=== PATIENT | male | born 1970 | race Caucasian/White ===

== ENCOUNTER 2019-10-18 10:11 | Emergency (ER) | payer OTHER ==
--- NOTE | 2019-10-18 10:28 | ER Document Report ---
ED Medical Screen (RME) - General Chief Complaint: Chest Pain Stated Complaint: CHEST PAIN Time Seen by Provider: 10/18/19 10:20 Notes: Patient presents complaining of palpitations for the past 2 days. Patient states he has had occasional dizzy spell. Patient reports chest pain midsternal area yesterday that has since resolved. Patient denies any nausea vomiting or shortness of breath. Patient denies any cough or cold symptoms. Patient reports a history of diabetes only which he manages with diet. I have greeted and performed a rapid initial assessment of this patient. A comprehensive ED assessment and evaluation of the patient, analysis of test results and completion of the medical decision making process will be conducted by additional ED providers. TRAVEL OUTSIDE OF THE [place] IN LAST 30 DAYS: No - Related Data Allergies/Adverse Reactions: amoxicillin [Amoxicillin] Allergy (Verified 09/23/13 00:23) Past Medical History Pulmonary Medical History: Reports: Hx COPD Endocrine Medical History: Reports: Hx Diabetes Mellitus Type 2 - diet controlled Renal/ Medical History: Reports: Hx Kidney Stones - x1 Psychiatric Medical History: Denies: Hx Depression Past Surgical History: Reports: Hx Genitourinary Surgery - vasectomy, Hx Orthopedic Surgery - left knee arthroscopy - Immunizations Hx Diphtheria, Pertussis, Tetanus Vaccination: Yes - 09/22/13 Physical Exam - Respiratory Respiratory status: No respiratory distress Breath sounds: Normal - Cardiovascular Rhythm: Regular Heart sounds: S1 appreciated, S2 appreciated Murmur: No
[2019-10-18 11:01] LABS: ABSOLUTE LYMPHOCYTES (AUTO) 1.2 10^3/uL (0.5-4.7); ABSOLUTE MONOCYTES (AUTO) 0.3 10^3/uL (0.1-1.4); BASOPHILS % (AUTO) 0.5 % (0-2); EOSINOPHILS % (AUTO) 0.4 % (0-6); HEMATOCRIT 47.8 % (37.9-51.0); HEMOGLOBIN 16.6 g/dL (13.5-17.0); MEAN CORPUSCULAR HEMOGLOBIN 29.8 pg (27.0-33.4); MEAN CORPUSCULAR HGB CONC 34.7 g/dL (32.0-36.0); MEAN CORPUSCULAR VOLUME 86 fl (80-97); MONOCYTES % (AUTO) 5.7 % (3-13); PLATELET COUNT 153 10^3/uL (150-450); RED BLOOD COUNT 5.57 10^6/uL (4.35-5.55); RED CELL DISTRIBUTION WIDTH 13.1 % (11.5-14.0); SEGMENTED NEUTROPHILS % (AUTO) 72.4 % (42-78); TOTAL CELLS COUNTED % (AUTO) 100 %; WHITE BLOOD COUNT 5.6 10^3/uL (4.0-10.5)
--- NOTE | 2019-10-18 11:05 | RADIOLOGY REPORT (SQ) ---
EXAM DESCRIPTION: CHEST SINGLE VIEW IMAGES COMPLETED DATE/TIME: 10/18/2019 10:47 am REASON FOR STUDY: palpitations COMPARISON: None. NUMBER OF VIEWS: One view. TECHNIQUE: Single frontal radiographic view of the chest acquired. LIMITATIONS: None. FINDINGS: LUNGS AND PLEURA: No opacities, masses or pneumothorax. No pleural effusion. MEDIASTINUM AND HILAR STRUCTURES: No masses. Contour normal. HEART AND VASCULAR STRUCTURES: Heart normal in size. Normal vasculature. BONES: No acute findings. HARDWARE: None in the chest. OTHER: No other significant finding. IMPRESSION: NO SIGNIFICANT RADIOGRAPHIC FINDING IN THE CHEST. TECHNICAL DOCUMENTATION: JOB ID: [id number] 2010 [employer]- All Rights Reserved Reading location - IP/workstation name: [email or web address]
[2019-10-18 11:21] LABS: ALBUMIN 4.7 g/dL (3.5-5.0); ALKALINE PHOSPHATASE 83 U/L (38-126); ANION GAP 13 (5-19); ASPARTATE AMINO TRANSFERASE 23 U/L (17-59); BILIRUBIN,DIRECT 0.3 mg/dL (0.0-0.4); BILIRUBIN,TOTAL 0.7 mg/dL (0.2-1.3); BLOOD UREA NITROGEN 14 mg/dL (7-20); CALCIUM 10.2 mg/dL (8.4-10.2); CARBON DIOXIDE 25 mmol/L (22-30); CHLORIDE 100 mmol/L (98-107); GLUCOSE 308 mg/dL (75-110); POTASSIUM 4.6 mmol/L (3.6-5.0); TOTAL PROTEIN 7.7 g/dL (6.3-8.2)
--- NOTE | 2019-10-18 14:47 | ER Document Report ---
Entered by CARLA GAYLE SCRIBE 10/18/19 1125 Acting as scribe for:GWENDOLYN SPRINGER MD ED General - General Chief Complaint: Chest Pain Stated Complaint: CHEST PAIN Time Seen by Provider: 10/18/19 10:20 Mode of Arrival: Ambulatory Information source: Patient Notes: This 49 year old male patient presents to the emergency department today with complaints of a heart racing sensation intermittently for the last week. 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 Patient mentions that he has had minimally elevated blood pressures for the last few months which are being followed by his PCP. He is not on any blood pressure medicine. TRAVEL OUTSIDE OF THE [place] IN LAST 30 DAYS: No - Related Data Allergies/Adverse Reactions: amoxicillin [Amoxicillin] Allergy (Verified 10/18/19 10:28) Past Medical History - General Information source: Patient - Social History Smoking Status: Former Smoker Cigarette use (# per day): No Frequency of alcohol use: None Drug Abuse: None Lives with: Family Family History: CAD - Mother at 52, CVA - Sister at 43 Patient has homicidal ideation: No Pulmonary Medical History: Reports: Hx COPD Endocrine Medical History: Reports: Hx Diabetes Mellitus Type 2 - diet controlled Renal/ Medical History: Reports: Hx Kidney Stones - x1 Past Surgical History: Reports: Hx Genitourinary Surgery - vasectomy, Hx Orthopedic Surgery - left knee arthroscopy - Immunizations Hx Diphtheria, Pertussis, Tetanus Vaccination: Yes - 09/22/13 Review of Systems - Review of Systems Constitutional: See HPI, Other - Dehydrated EENT: No symptoms reported Cardiovascular: See HPI, Chest pain, Palpitations, Heart racing Respiratory: No symptoms reported Gastrointestinal: No symptoms reported Genitourinary: No symptoms reported Male Genitourinary: No symptoms reported Musculoskeletal: No symptoms reported Skin: No symptoms reported Hematologic/Lymphatic: No symptoms reported Neurological/Psychological: No symptoms reported -: Yes All other systems reviewed and negative Physical Exam - Vital signs Vitals: Temp Pulse Resp BP Pulse Ox 98.8 F 78 17 155/96 H 98 10/18/19 10:28 10/18/19 10:28 10/18/19 10:28 10/18/19 10:28 10/18/19 10:28 - Notes Notes: Physical Exam: General: Alert, appears well. HEENT: Normocephalic. Atraumatic. PERRL. Extraocular movements intact. Oropharynx clear. Neck: Supple. Non-tender. Respiratory: No respiratory distress. Clear and equal breath sounds bilaterally. Cardiovascular: Regular rate and rhythm. Abdominal: Normal Inspection. Non-tender. No distension. Normal Bowel Sounds. Back: No gross abnormalities. Extremities: Moves all four extremities. Upper extremities: Normal inspection. Normal ROM. Lower extremities: Normal inspection. No edema. Normal ROM. Neurological: Normal cognition. AAOx4. Normal speech. Psychological: Normal affect. Normal Mood. Skin: Warm. Dry. Normal color. Course - Re-evaluation Re-evalutation: 10/18/19 14:38 Patient resting comfortably not having any chest pain not having any shortness of breath still states that he is having occasional extra beat and he notices in his chest. - Vital Signs Vital signs: Temp Pulse Resp BP Pulse Ox 98.8 F 78 17 136/96 H 98 10/18/19 10:28 10/18/19 10:28 10/18/19 11:01 10/18/19 11:01 10/18/19 11:01 10/18/19 14:38 Vital signs stable patient's blood pressure is now 122/83. - Laboratory Result Diagrams: 10/18/19 10:47 10/18/19 10:47 Laboratory results interpreted by me: 10/18/19 10/18/19 10:47 10:47 RBC 5.57 H Glucose 308 H 10/18/19 14:39 Patient's troponin level has been flat across a 0.012. - Diagnostic Test Radiology reviewed: Image reviewed, Reports reviewed Radiology results interpreted by me: 10/18/19 14:39 X-ray shows no acute process. - EKG Interpretation by Me Additional EKG results interpreted by me: 10/18/19 14:39 Twelve-lead EKG shows normal sinus rhythm rate of 84 occasional premature atrial complex. Nonspecific ST-T wave changes. Borderline T wave changes noted no acute interval changes of HI interval or QT interval. No evidence for an acute TN. Discharge - Discharge Clinical Impression: Palpitations, Hyperglycemia, History of dehydration, Atypical chest pain Condition: Stable Disposition: HOME, SELF-CARE Instructions: Chest Pain of Unclear Cause ([facility]) Additional Instructions: Hyperglycemia (High Blood Sugar) You have an abnormally high blood sugar. Not all high blood sugar requires long-term treatment. High blood sugar can be due to medications, , or the stress of illness. (These cases are "borderline diabetes.") If the doctor feels your high blood sugar might resolve with time, you may not require treatment now. You will be scheduled for further evaluation. It's very important that you follow through, to see if the blood sugar returns to normal levels. Uncontrolled high blood sugar leads to early heart disease, strokes, nerve damage, eye damage, and kidney damage. Call the physician if there is faintness, excess sleepiness, or very rapid breathing.Palpitations (Irregular/Rapid Heartrate) Irregular or rapid heartbeat is called "palpitation." To diagnose the caus e of palpitation, we have to "catch it in the act" with an EKG. Sinus Tachycardia: This is a rapid (but NORMAL) rhythm that can be due to fever, pain, anxiety, lack of sleep, over-exertion, or drugs. Cold medications, caffeine, and diet pills are particularly likely to cause tachycardia. Usually, all that's required is rest, reassurance, and avoiding caffeine, alcohol, nicotine, and unnecessary medicines. Paroxysmal Atrial Tachycardia (PAT): This abnormally rapid heartbeat is caused by a "short circuit" in the electrical system of the heart. It is not dangerous, unless other heart disease is present. These attacks of PAT may occur occasionally for years. Medication is available for treatment. Paroxysmal Atrial Fibrillation or Atrial Flutter: This is irregular electrical activity in the upper heart chamber. These abnormal rhythms often occur with valve disease or in hearts damaged by hardening of the arteries. These rhythms usually require further testing, for example a cardiac echo. Premature Beats: Extra beats occur more commonly after caffeine, nicotine, alcohol, cold pills, diet pills. Emotional stress or fatigue also provoke them. Extra beats are only dangerous when heart disease is present. They usually need no treatment. If they're frequent, or if evidence of heart disease develops, medication can be given to suppress them. If we were unable to "catch" the palpitations on EKG, you should try to get an EKG immediately if the symptoms begin again. Contact the physician at once if you develop persistent lightheadedness, shortness of breath, chest pain, or swelling of the ankles. Referrals: VIVIANE STEEN MD [ACTIVE STAFF] - Follow up in 1 week I personally performed the services described in the documentation, reviewed and edited the documentation which was dictated to the scribe in my presence, and it accurately records my words and actions.
[2019-10-18 15:10] VITALS: BP 136/81
--- NOTE | 2019-10-20 02:51 | EKG REPORT ---
SEVERITY:- BORDERLINE ECG - SINUS RHYTHM ATRIAL PREMATURE COMPLEX BORDERLINE T WAVE ABNORMALITIES : Confirmed by: Romain Bermudez MD 20-Oct-2019 02:50:12
== END 2019-10-18 15:11 | disposition home or self-care (01) ==
LOC: ER 10:11
DX: E11.65 Type 2 diabetes mellitus with hyperglycemia (principal); R00.2 Palpitations; R07.89 Other chest pain; E86.0 Dehydration; Z87.891 Personal history of nicotine dependence; Z88.0 Allergy status to penicillin; J44.9 Chronic obstructive pulmonary disease, unspecified
CPT/HCPCS: 36415; 71045; 80053; 83735; 84443; 84484; 85025; 93005; 93010; 99285

== ENCOUNTER 2019-10-21 13:47 | Emergency (ER) | payer OTHER ==
[2019-10-21] MEDS ORDERED: NORMAL SALINE 1000 ML 1,000 ML IV ONE (14:16)
[2019-10-21] MEDS ORDERED: KETOROLAC TROMETHAMINE INJ/PF 30 MG/1 ML SDV IV ONE ×2 (14:16→18:45)
[2019-10-21] MEDS ORDERED: METOCLOPRAMIDE HCL ORAL SOLN 10 MG/10 ML UDCUP PO ONE (14:19)
[2019-10-21] MEDS ORDERED: LIDOCAINE 2% VISCOUS SOLN 15 ML UDCUP PO ONE (14:19)
[2019-10-21] MEDS ORDERED: MAG HYDROX/AL HYDROX/SIMETH SUSP 30 ML UDCUP PO ONE (14:19)
--- NOTE | 2019-10-21 14:20 | ER Document Report ---
ED Medical Screen (RME) - General Chief Complaint: Abdominal Pain Stated Complaint: ABDOMINAL PAIN Time Seen by Provider: 10/21/19 14:08 TRAVEL OUTSIDE OF THE [place] IN LAST 30 DAYS: No - HPI Notes: 10/21/19 14:17 49-year-old male with a history of GERD presents to the emergency room with complaints of right upper quadrant and right lower quadrant abdominal pain with bloating and increased flatus that started Sunday evening. Patient was seen in the emergency room this past Sunday for racing heart, states he has not had any issues with this at this time. Reports his last bowel movement was this mo rning, no melena. Patient has been eating without any issues. Reports he did vomit a few times Sunday night to Sunday but has not vomited since. Has tried Pepto-Bismol without relief. Reports pain is sharp and constant, denies any radiation of pain. Patient states initially it felt like he was gasping his left lower quadrant Sunday and then it moved over to his right upper and right lower quadrant with his pain. Denies any chest pain, shortness of breath, any nausea or vomiting today, no diarrhea. Reports chills denies any fevers. Patient does not take any prescription or egic-puy-crlaueb medication for his GERD, states that he changed his diet to manage his GERD. I have greeted and performed a rapid initial assessment of this patient. A comprehensive ED assessment and evaluation of the patient, analysis of test results and completion of the medical decision making process will be conducted by additional ED providers. PHYSICAL EXAMINATION: GENERAL: Well-appearing, well-nourished and in no acute distress. HEAD: Atraumatic, normocephalic. EYES: Pupils equal round extraocular movements intact, conjunctiva are normal. NECK: Normal range of motion CV: s1, s2 regular LUNGS: No respiratory distress abd: RUQ, RLQ abd pain on palpation, no cva tenderness appreciated Musculoskeletal: Normal range of motion NEUROLOGICAL: Normal speech, normal gait. SKIN: Warm, Dry, normal turgor, no rashes or lesions noted. - Related Data Allergies/Adverse Reactions: amoxicillin [Amoxicillin] Allergy (Verified 10/21/19 14:03) Sulfa (Sulfonamide Antibiotics) Allergy (Verified 10/21/19 14:03) Home Medications: metformen asa 325mg. suboxone Past Medical History - Social History Chew tobacco use (# tins/day): Yes Frequency of alcohol use: Occasional Drug Abuse: None Pulmonary Medical History: Reports: Hx COPD Endocrine Medical History: Reports: Hx Diabetes Mellitus Type 2 - diet controlled Renal/ Medical History: Reports: Hx Kidney Stones - x1 Psychiatric Medical History: Denies: Hx Depression Past Surgical History: Reports: Hx Genitourinary Surgery - vasectomy, Hx Orthopedic Surgery - left knee arthroscopy - Immunizations Hx Diphtheria, Pertussis, Tetanus Vaccination: Yes - 09/22/13 Physical Exam - Vital signs Vitals: Temp Pulse Resp BP Pulse Ox 98.7 F 112 H 20 143/93 H 97 10/21/19 13:52 10/21/19 13:52 10/21/19 13:52 10/21/19 13:52 10/21/19 13:52 Course - Vital Signs Vital signs: Temp Pulse Resp BP Pulse Ox 98.7 F 112 H 20 143/93 H 97 10/21/19 13:52 10/21/19 13:52 10/21/19 13:52 10/21/19 13:52 10/21/19 13:52
[2019-10-21 14:57] LABS: ABSOLUTE BASOPHILS # (AUTO) 0.1 10^3/uL (0.0-0.2); ABSOLUTE EOSINOPHILS # (AUTO) 0.1 10^3/uL (0.0-0.6); ABSOLUTE LYMPHOCYTES (AUTO) 1.5 10^3/uL (0.5-4.7); ABSOLUTE MONOCYTES (AUTO) 0.7 10^3/uL (0.1-1.4); ABSOLUTE NEUT (AUTO) 11.4 10^3/uL (1.7-8.2); BASOPHILS % (AUTO) 0.5 % (0-2); EOSINOPHILS % (AUTO) 0.5 % (0-6); HEMATOCRIT 44.5 % (37.9-51.0); HEMOGLOBIN 15.4 g/dL (13.5-17.0); LYMPHOCYTES % (AUTO) 11.2 % (13-45); MEAN CORPUSCULAR HEMOGLOBIN 29.8 pg (27.0-33.4); MEAN CORPUSCULAR HGB CONC 34.7 g/dL (32.0-36.0); MEAN CORPUSCULAR VOLUME 86 fl (80-97); MONOCYTES % (AUTO) 4.8 % (3-13); PLATELET COUNT 178 10^3/uL (150-450); RED BLOOD COUNT 5.18 10^6/uL (4.35-5.55); TOTAL CELLS COUNTED % (AUTO) 100 %; WHITE BLOOD COUNT 13.7 10^3/uL (4.0-10.5)
[2019-10-21 15:04] LABS: APPEARANCE,URINE CLEAR; BILIRUBIN,URINE NEGATIVE (NEGATIVE); COLOR,URINE YELLOW; GLUCOSE, URINE >=500 mg/dL (NEGATIVE); KETONES,URINE TRACE mg/dL (NEGATIVE); LEUKOCYTE ESTERASE,URINE NEGATIVE (NEGATIVE); NITRITE,URINE NEGATIVE (NEGATIVE); PROTEIN,URINE NEGATIVE (NEGATIVE); URINE SPECIFIC GRAVITY 1.024; UROBILINOGEN,URINE NEGATIVE mg/dL (<2.0)
[2019-10-21 15:36] LABS: ALBUMIN 4.5 g/dL (3.5-5.0); ALKALINE PHOSPHATASE 88 U/L (38-126); ANION GAP 13 (5-19); ASPARTATE AMINO TRANSFERASE 20 U/L (17-59); BILIRUBIN,DIRECT 0.3 mg/dL (0.0-0.4); BILIRUBIN,TOTAL 0.8 mg/dL (0.2-1.3); BLOOD UREA NITROGEN 10 mg/dL (7-20); CALCIUM 9.6 mg/dL (8.4-10.2); CARBON DIOXIDE 25 mmol/L (22-30); CHLORIDE 94 mmol/L (98-107); GLUCOSE 327 mg/dL (75-110); POTASSIUM 4.2 mmol/L (3.6-5.0); TOTAL PROTEIN 7.6 g/dL (6.3-8.2)
--- NOTE | 2019-10-21 17:40 | ER Document Report ---
ED GI/ - General Chief Complaint: Abdominal Pain Stated Complaint: ABDOMINAL PAIN Time Seen by Provider: 10/21/19 14:08 Primary Care Provider: LUCY GALLEGO MD [ACTIVE STAFF] - Follow up in 3-5 days Mode of Arrival: Ambulatory Information source: Patient Notes: Patient presents complaining of right side abdominal pain that started yesterday. Patient denies any nausea vomiting or diarrhea. Patient denies any urinary symptoms. Last bowel movement was today and was normal. TRAVEL OUTSIDE OF THE [place] IN LAST 30 DAYS: No - HPI Patient complains to provider of: Abdominal pain. No: Vomiting Timing/Duration: Gradual Quality of pain: Sharp Pain Level: 5 Location: RLQ Associated symptoms: denies: Constipation, Diarrhea, Fever, Loss of appetite, Nausea, Syncope, Urinary hesitancy, Urinary frequency, Urinary retention, Urinary urgency, Vomiting Exacerbated by: Movement Relieved by: Denies Similar symptoms previously: No Recently seen / treated by doctor: Yes - Related Data Allergies/Adverse Reactions: amoxicillin [Amoxicillin] Allergy (Verified 10/21/19 14:03) Sulfa (Sulfonamide Antibiotics) Allergy (Verified 10/21/19 14:03) Home Medications: metformen asa 325mg. suboxone Past Medical History - General Information source: Patient - Social History Smoking Status: Former Smoker Chew tobacco use (# tins/day): Yes Frequency of alcohol use: Occasional Drug Abuse: None Occupation: Equipment Lives with: Family Family History: CAD - Mother at 52, CVA - Sister at 43 Pulmonary Medical History: Reports: Hx COPD Endocrine Medical History: Reports: Hx Diabetes Mellitus Type 2 - diet control led Renal/ Medical History: Reports: Hx Kidney Stones - x1 Psychiatric Medical History: Denies: Hx Depression Past Surgical History: Reports: Hx Genitourinary Surgery - vasectomy, Hx Orthopedic Surgery - left knee arthroscopy - Immunizations Hx Diphtheria, Pertussis, Tetanus Vaccination: Yes - 09/22/13 Review of Systems - Review of Systems Constitutional: No symptoms reported. denies: Fever EENT: No symptoms reported Cardiovascular: No symptoms reported. denies: Chest pain Respiratory: No symptoms reported. denies: Cough Gastrointestinal: Abdominal pain. denies: Diarrhea, Nausea, Vomiting, Constipation, Blood streaked bowels, Poor appetite Genitourinary: No symptoms reported. denies: Dysuria, Flank pain Male Genitourinary: No symptoms reported Musculoskeletal: No symptoms reported. denies: Back pain Skin: No symptoms reported Hematologic/Lymphatic: No symptoms reported Neurological/Psychological: No symptoms reported Physical Exam - Vital signs Vitals: Temp Pulse Resp BP Pulse Ox 98.7 F 112 H 20 143/93 H 97 10/21/19 13:52 10/21/19 13:52 10/21/19 13:52 10/21/19 13:52 10/21/19 13:52 - Notes Notes: PHYSICAL EXAMINATION: GENERAL: Well-appearing and in no acute distress. HEAD: Atraumatic, normocephalic. EYES: sclera anicteric, conjunctiva are normal. ENT: nares patent. Moist mucous membranes. NECK: Normal range of motion, supple without lymphadenopathy LUNGS: CTAB and equal. No wheezes rales or rhonchi. HEART: Tachycardia with normal rhythm without murmurs ABDOMEN: Soft, right lower quadrant tenderness with guarding, normal bowel sounds. EXTREMITIES: Normal range of motion, no pitting edema. No cyanosis. BACK: No midline tenderness, no step-off or deformity. No CVA tenderness NEUROLOGICAL: Cranial nerves grossly intact. Normal speech. PSYCH: Normal mood, normal affect. SKIN: Warm, Dry, normal turgor, no rashes or lesions noted Course - Re-evaluation Re-evalutation: 10/21/19 19:14 Patient continues with lateral side tenderness at this time, reviewed patient CT report findings which demonstrates thickening of the colonic wall that could be due to inflammation, inflammatory process or possible underlying mass. Consul bella with surgeon Dr. Gallego who advises placing patient on Flagyl 250 mg 3 times daily for 10 days as well as Cipro 500 mg twice daily for [address] Gallego was advised with patient's laboratory results, absence of fever as well as narrative of the CT imaging report. He advises treating pain symptoms with something such as Toradol and having patient follow-up in the office or Sunday of this week. He states that he will get patient set up for a colonoscopy for further evaluation. Patient was advised of conversation with surgeon and discharge plan of care. Discussed worsening symptoms that patient should return immediately for. Patient verbalized understanding and is agreeable with plan of care at this time. 10/21/19 19:15 - Vital Signs Vital signs: Temp Pulse Resp BP Pulse Ox 97.8 F 77 16 136/87 H 96 10/21/19 20:04 10/21/19 20:04 10/21/19 20:04 10/21/19 20:04 10/21/19 20:04 - Laboratory Result Diagrams: 10/21/19 14:40 10/21/19 14:40 Laboratory results interpreted by me: 10/21/19 10/21/19 10/21/19 14:40 14:40 14:40 WBC 13.7 H Lymph % (Auto) 11.2 L Absolute Neuts (auto) 11.4 H Seg Neutrophils % 83.0 H Sodium 131.7 L Chloride 94 L Glucose 327 H Urine Glucose (UA) >=500 H Urine Ketones TRACE H 10/21/19 19:15 Labs- All tests 24 hr 10/21/19 10/21/19 10/21/19 14:40 14:40 14:40 WBC 13.7 H RBC 5.18 Hgb 15.4 Hct 44.5 MCV 86 MCH 29.8 MCHC 34.7 RDW 13.0 Plt Count 178 Lymph % (Auto) 11.2 L [place] % (Auto) 4.8 Eos % (Auto) 0.5 Baso % (Auto) 0.5 Absolute Neuts (auto) 11.4 H Absolute Lymphs (auto) 1.5 Absolute Monos (auto) 0.7 Absolute Eos (auto) 0.1 Absolute Basos (auto) 0.1 Seg Neutrophils % 83.0 H Sodium 131.7 L Potassium 4.2 Chloride 94 L Carbon Dioxide 25 Anion Gap 13 BUN 10 Creatinine 0.73 Est GFR ( Amer) > 60 Est GFR (MDRD) Non-Af > 60 Glucose 327 H Calcium 9.6 Total Bilirubin 0.8 Direct Bilirubin 0.3 Neonat Total Bilirubin Not Reportable Neonat Direct Bilirubin Not Reportable Neonat Indirect Bili Not Reportable AST 20 ALT 20 Alkaline Phosphatase 88 Total Protein 7.6 Albumin 4.5 Lipase 36.8 Urine Color YELLOW Urine Appearance CLEAR Urine pH 6.0 Ur Specific [place] 1.024 Urine Protein NEGATIVE Urine Glucose (UA) >=500 H Urine Ketones TRACE H Urine Blood NEGATIVE Urine Nitrite NEGATIVE Urine Bilirubin NEGATIVE Urine Urobilinogen NEGATIVE Ur Leukocyte Esterase NEGATIVE Urine WBC (Auto) 0 Urine Mucus (Auto) RARE Urine Ascorbic Acid NEGATIVE - Diagnostic Test Radiology reviewed: Reports reviewed Discharge - Discharge Clinical Impression: Colitis Abdominal pain Qualifiers: Abdominal location: right lower quadrant Qualified Code(s): R10.31 - Right l ower quadrant pain Condition: Stable Disposition: HOME, SELF-CARE Instructions: Abdominal Pain ([facility]), Ciprofloxacin ([facility]), Colitis, Nonspecific ([facility]), Metronidazole ([facility]) Additional Instructions: Return immediately for any new or worsening symptoms; fever, worsening pain, blood in stool or any concerning new symptoms Followup with your primary care provider, call tomorrow to make a followup ap pointment Follow-up with Dr. Gallego, call this office tomorrow for a follow-up appointment for or Sunday of this week. He will eventually get you set up for a colonoscopy for further evaluation. Prescriptions: Ketorolac Tromethamine [Toradol 10 mg Tablet] 10 mg PO Q6HP PRN #12 tablet PRN Reason: Ciprofloxacin HCl [Cipro 500 mg Tablet] 500 mg PO BID #20 tablet Metronidazole [Flagyl 250 mg Tablet] 250 mg PO Q8 #30 tablet Referrals: LUCY GALLEGO MD [ACTIVE STAFF] - Follow up in 3-5 days
--- NOTE | 2019-10-21 18:39 | RADIOLOGY REPORT (SQ) ---
EXAM DESCRIPTION: CT ABD/PELVIS WITH IV ONLY IMAGES COMPLETED DATE/TIME: 10/21/2019 5:11 pm REASON FOR STUDY: RUQ, RLQ abd pain x3d, +bloating, +gas, BM today COMPARISON: None. TECHNIQUE: CT scan of the abdomen and pelvis performed using helical scanning technique with dynamic intravenous contrast injection. No oral contrast. Images reviewed with lung, soft tissue, and bone windows. Reconstructed coronal and sagittal MPR images reviewed. Delayed images for evaluation of the urinary system also acquired. All images stored on PACS. All CT scanners at this facility use dose modulation, iterative reconstruction, and/or weight based d osing when appropriate to reduce radiation dose to as low as reasonably achievable (ALARA). [facility]: Dose Right [facility]: CareDose [facility]: Dose Right [facility]: Teradose 4D [facility]: Ushi CONTRAST TYPE AND DOSE: contrast/concentration: Isovue 350.00 mmol/ml; Total Contrast Delivered: 90. 0 ml; Total Saline Delivered: 26.5 ml RENAL FUNCTION: GFR > 60. RADIATION DOSE: CT Rad equipment meets quality standard of care and radiation dose reduction techniq ues were employed. CTDIvol: 7.1 - 9.9 mGy. DLP: 1025 mGy-cm.. LIMITATIONS: None. FINDINGS: LOWER CHEST: No significant findings. No nodules or infiltrates. LIVER: Normal size. No masses. No dilated ducts. SPLEEN: Normal size. No focal lesions. PANCREAS: No masses. No significant calcifications. No adjacent inflammation or peripancreatic fluid collections. Pancreatic duct not dilated. GALLBLADDER: No identified stones by CT criteria. No inflammatory changes to suggest cholecystitis. ADRENAL GLANDS: No significant masses or asymmetry. RIGHT KIDNEY AND URETER: No solid masses. Punctate nonobstructing right inferior pole renal calculu s. No obstructing renal or ureteral calculi. No hydronephrosis or hydroureter. LEFT KIDNEY AND URETER: No solid masses. There are 2 nonobstructing left renal calculi. . No hyd ronephrosis or hydroureter. AORTA AND VESSELS: No aneurysm. No dissection. Renal arteries, SMA, celiac without stenosis. RETROPERITONEUM: No retroperitoneal adenopathy, hemorrhage or masses. BOWEL AND PERITONEAL CAVITY: There is abnormal colon wall thickening involving the cecum with cecal w all measuring up to 16 mm thickness. Mild surrounding inflammatory change. The appendix is normal. No bowel obstruction. No bowel wall thickening. Scattered colonic diverticula without evidence of diverticulitis. No ascites or pneumoperitoneum. APPENDIX: Normal. PELVIS: No mass. No free fluid. Normal bladder. ABDOMINAL WALL: No masses. No hernias. BONES: No significant or acute findings. OTHER: No other significant finding. IMPRESSION: 1. Abnormal colon wall thickening at the cecum with mild surrounding inflammatory change. No involve ment of the appendix. Finding may represent infectious/inflammatory process, however an underlying c ecal mass is not excluded. Clinical correlation and correlation with colonoscopy is recommended. 2. Appendix is normal. 3. Nonobstructing bilateral renal calculi. TECHNICAL DOCUMENTATION: JOB ID: [id number] Quality ID # [id number]: Final reports with documentation of one or more dose reduction techniques (e.g., Au tomated exposure control, adjustment of the mA and/or kV according to patient size, use of iterative reconstruction technique) 2010 [employer]- All Rights Reserved Reading location - IP/workstation name: [email or web address]
[2019-10-21] MEDS ORDERED: METRONIDAZOLE 250 MG TABLET PO ONE (19:16)
[2019-10-21] MEDS ORDERED: CIPROFLOXACIN HCL 500 MG TABLET PO ONE (19:16)
[2019-10-21 20:09] VITALS: BP 136/87
== END 2019-10-21 20:09 | disposition home or self-care (01) ==
LOC: ER 13:47
DX: K52.9 Noninfective gastroenteritis and colitis, unspecified (principal); R10.31 Right lower quadrant pain; J44.9 Chronic obstructive pulmonary disease, unspecified; E11.9 Type 2 diabetes mellitus without complications; Z88.0 Allergy status to penicillin; Z88.2 Allergy status to sulfonamides; Z87.442 Personal history of urinary calculi
CPT/HCPCS: 96376; 99284; 96361; 96374; 36415; 83690; 85025; 80053; 81001; 74177; J3490 ×2; J1885; J7030